=== PATIENT | female | born 1955 | race Caucasian/White ===

== ENCOUNTER 2016-06-15 15:55 | Emergency (ER) | payer OTHER ==
[~2016-06-15] VITALS: Ht 172.7 cm; Wt 59.0 kg
[2016-06-15 21:19] VITALS: BP 127/77
== END 2016-06-15 21:19 | disposition home or self-care (01) ==
LOC: ER 16:47
DX: S52.124A Nondisplaced fracture of head of right radius, initial encounter for closed fracture (principal); S50.01XA Contusion of right elbow, initial encounter; F32.9 Major depressive disorder, single episode, unspecified; I10 Essential (primary) hypertension; Z88.0 Allergy status to penicillin; Y93.89 Activity, other specified; Y92.89 Other specified places as the place of occurrence of the external cause; Y99.9 Unspecified external cause status
CPT/HCPCS: 73020; 73070; 73110; 73200; 99284; A4606; Z7610

== ENCOUNTER 2017-04-23 21:05 | Emergency (ER) | payer BC, MEDICAID ==
[~2017-04-23] VITALS: Ht 172.7 cm; Wt 74.8 kg
[2017-04-23 21:16] VITALS: BP 148/77
--- NOTE | 2017-04-23 21:17 | NUR ---
PT BIB FAMILY, C/O HIGH BP OVER PAST 2 HRS DIZZINESS, HX VERTIGO. PT AOX3 RR EVEN AND UNLABORED. NO SOB NOTED. NAD NOTED. NO NVD AT THIS TIME. PT GOWNED AND PLACED ON MONITOR. DR. ALFRED AT BEDSIDE FOR EVAL.
== END 2017-04-23 21:33 | disposition home or self-care (01) ==
LOC: ER 21:08
DX: I10 Essential (primary) hypertension (principal); F32.9 Major depressive disorder, single episode, unspecified; Z88.0 Allergy status to penicillin
CPT/HCPCS: 99283; A4606; Z7610

== ENCOUNTER 2017-08-05 14:26 | Emergency (ER) | payer BC, MEDICAID ==
[~2017-08-05] VITALS: Ht 172.7 cm; Wt 74.8 kg
[2017-08-05 14:45] VITALS: BP 99/63
[2017-08-05] MEDS ORDERED: MORPHINE SULFATE INJ 2 MG/ML DISP.SYRIN IM ONE (15:30)
[2017-08-05] MEDS ORDERED: ONDANSETRON 4 MG TAB.RAPDIS SL ONE (15:30)
[2017-08-05] MEDS ORDERED: MORPHINE SULFATE INJ 4 MG/ML DISP.SYRIN ONE (15:35)
[2017-08-05] MEDS ORDERED: ONDANSETRON 4 MG TAB.RAPDIS ONE (15:35)
== END 2017-08-05 18:12 | disposition home or self-care (01) ==
LOC: ER 14:27
DX: B02.9 Zoster without complications (principal); F32.9 Major depressive disorder, single episode, unspecified; I10 Essential (primary) hypertension; Z88.0 Allergy status to penicillin; Z60.2 Problems related to living alone
CPT/HCPCS: A4606; J2270; Q0162; Z7610